=== PATIENT | male | born 1935 | race Caucasian/White ===

== ENCOUNTER 2018-01-31 09:53 | Outpatient (CLI) | payer OTHER ==
--- NOTE | 2018-02-04 15:32 | RAD ---
MODIFIED BARIUM SWALLOW: 02/04/18 HISTORY: Swallowing dysfunction. Difficulty swallowing and feeding dysfunction. The exam reviewed remotely. FINDINGS/IMPRESSION: There appears to be moderate swallowing dysfunction. Premature spillage and pooling is noted. Evidenc e of laryngeal penetration and aspiration. Pathologist describes this is silent aspiration. See speech pathologist recommendation. POS: [facility]
== END 2018-01-31 09:54 | disposition home or self-care (01) ==
LOC: EDSTATUS 10:00
PROVIDERS: ATTEND Family Medicine
DX: R13.10 Dysphagia, unspecified (principal); R63.3 Feeding difficulties
CPT/HCPCS: 74230; G8996-GN-CK; G8997-GN-CJ; G8998-GN-CK

== ENCOUNTER 2022-11-07 05:08 | Observation (INO) | payer MEDICARE ==
[2022-11-07 05:37] LABS: #Eosinphils 0.3 thou/uL (0.0-0.7); #Monocytes 1.4 thou/uL (0.11-0.59); #Neutrophils 6.1 thou/uL (1.40-6.50); %Basophils 0.3 % (0.0-1.0); %Eosinophils 2.3 % (0.0-10.0); %Lymphocytes 27.2 % (21.0-51.0); %Monocytes 12.7 % (0.0-10.0); %Neutrophils 57.2 % (42.0-75.0); Hemoglobin 12.7 g/dL (14.0-18.0); Mean Corpuscular HGB CONC 32.2 g/dL (32.0-36.0); Mean Corpuscular Hemoglobin 31.8 pg (27.0-31.0); Mean Platelet Volume 10.3 fL (7.4-10.4); Platelet Count 228 10x3/uL (130-400); RBC Distribution Width 13.2 % (11.5-14.5); Red Blood Cell (RBC) Count 3.99 mill/uL (4.70-6.10); White Blood Cell (WBC) Count 10.6 10x3/uL (4.8-10.8)
[2022-11-07 06:26] LABS: CKMB 3.7 ng/mL (0-6.6)
[2022-11-07 07:29] LABS: ALT (SGPT) 12 U/L (8-55); AST (SGOT) 15 U/L (5-34); Albumin 3.5 g/dL (3.4-4.8); Alkaline Phosphatase 83 U/L (40-110); Anion Gap 17 mmol/L (10-20); BUN (Urea Nitrogen) 27 mg/dL (8.4-25.7); Bilirubin, Total 0.4 mg/dL (0.2-1.2); Calc. Creatinine Clearance 0 mL/min (70-130); Carbon Dioxide 22 mmol/L (23-31); Chloride 105 mmol/L (98-107); Estimated GFR 68; Globulin 3.2 g/dL (2.4-3.5); Glucose 99 mg/dL (83-110); Potassium 4.7 mmol/L (3.5-5.1); Protein, Total 6.7 g/dL (5.8-8.1); Sodium 139 mmol/L (136-145)
[2022-11-07] MEDS ORDERED: Nitroglycerin 0.4 MG TAB (25 Tab Bottle) SL PRN (07:57)
[2022-11-07] MEDS ORDERED: Aspirin Chewable 81 MG TAB PO SCH (09:00)
[2022-11-07 09:32] LABS: Troponin I 0.027 ng/mL (< 0.028)
[2022-11-07] MEDS ORDERED: Acetaminophen 650 MG Suppository PR PRN (09:38)
[2022-11-07] MEDS ORDERED: Bisacodyl 5 MG TAB PO PRN (09:38)
[2022-11-07] MEDS ORDERED: Acetaminophen 325 MG TAB PO PRN (09:38)
[2022-11-07] MEDS ORDERED: Senokot S 8.6-50 MG TAB PO PRN (09:38)
[2022-11-07] MEDS ORDERED: Ipratropium/Albuterol 3 ML NEB NEB PRN (09:52)
[2022-11-07 10:39] LABS: Magnesium 2.1 mg/dL (1.6-2.6); Phosphorus 3.9 mg/dL (2.3-4.7)
[2022-11-07] MEDS ORDERED: Hydrocortisone 10 mg Tablet PO SCH (11:00)
[2022-11-07] MEDS ORDERED: Polyethylene Glycol 3350 17 GM Packet PO SCH (11:00)
[2022-11-07] MEDS ORDERED: predniSONE 20 MG TAB PO SCH (11:00)
[2022-11-07] MEDS ORDERED: predniSONE 20 MG TAB ONE (11:28)
[2022-11-07 12:44] LABS: SARS-CoV-2 NAA Rapid Test Not Detected (NotDetected)
[2022-11-07 12:59] LABS: Troponin I 0.028 ng/mL (< 0.028)
[2022-11-07 13:35] LABS: Strep pneumo Urine Ag NEGATIVE (NEGATIVE)
[2022-11-07 16:04] VITALS: BMI 31.3
[2022-11-07] MEDS: Mometasone/Formoterol 200/5 60 PUFF INH SCH (18:47)
[2022-11-07] MEDS: risperiDONE 1 MG TAB PO SCH (20:34)
[2022-11-07] MEDS ORDERED: Atorvastatin Calcium 20 MG TAB PO SCH (21:00)
[2022-11-07] MEDS ORDERED: Nortriptyline HCl 25 MG CAP PO SCH (21:00)
[2022-11-08 06:09] LABS: #Monocytes 0.9 thou/uL (0.11-0.59); #Neutrophils 6.3 thou/uL (1.40-6.50); %Basophils 0.1 % (0.0-1.0); %Eosinophils 0.2 % (0.0-10.0); %Lymphocytes 20.5 % (21.0-51.0); %Monocytes 10.2 % (0.0-10.0); %Neutrophils 68.8 % (42.0-75.0); Hemoglobin 12.3 g/dL (14.0-18.0); Mean Corpuscular HGB CONC 33.1 g/dL (32.0-36.0); Mean Corpuscular Hemoglobin 31.6 pg (27.0-31.0); Mean Corpuscular Volume 95.6 fl (78.0-98.0); Mean Platelet Volume 10.7 fL (7.4-10.4); Platelet Count 234 10x3/uL (130-400); Red Blood Cell (RBC) Count 3.89 mill/uL (4.70-6.10); White Blood Cell (WBC) Count 9.2 10x3/uL (4.8-10.8)
[2022-11-08 06:35] LABS: Anion Gap 14 mmol/L (10-20); BUN (Urea Nitrogen) 22 mg/dL (8.4-25.7); Calc. Creatinine Clearance 83 mL/min (70-130); Carbon Dioxide 22 mmol/L (23-31); Cardiac Risk 2.6 (Less than 4.5); Chloride 104 mmol/L (98-107); Cholesterol 119 mg/dl (< 200 Desired); Estimated GFR 85; Glucose 97 mg/dL (83-110); HDL Cholesterol 45 mg/dL (>60 Neg Risk); LDL Cholesterol, Calculated 63 mg/dL; Potassium 4.2 mmol/L (3.5-5.1); Sodium 136 mmol/L (136-145); Triglycerides 53 mg/dL (Less than 150)
[2022-11-08] MEDS: Mometasone/Formoterol 200/5 60 PUFF INH SCH ×2 (07:45→18:31)
[2022-11-08] MEDS ORDERED: predniSONE 20 MG TAB PO SCH (08:00)
[2022-11-08] MEDS: risperiDONE 1 MG TAB PO SCH (08:06)
[2022-11-08] MEDS ORDERED: Polyethylene Glycol 3350 17 GM Packet PO SCH (09:00)
[2022-11-08] MEDS ORDERED: Hydrocortisone 10 mg Tablet PO SCH (09:00)
[2022-11-08] MEDS ORDERED: Pramipexole Di-HCl 1 MG TAB PO SCH (09:00)
[2022-11-08] MEDS ORDERED: Aspirin 81 mg Enteric Coated Tablet PO SCH (09:00)
[2022-11-08] MEDS ORDERED: Nortriptyline HCl 25 MG CAP PO SCH (09:00)
[2022-11-08] MEDS ORDERED: Metoprolol Tartrate 25 MG TAB PO SCH ×2 (10:00→21:00)
[2022-11-08] MEDS ORDERED: Doxycycline 100 MG in Sodium Chloride 0.9% 100 ML IVPB SCH (10:00)
[2022-11-08] MEDS ORDERED: Losartan 25 MG TAB PO SCH (16:00)
[2022-11-08 16:16] VITALS: BP 119/60; TEMP 98.7
[2022-11-09] MEDS ORDERED: Losartan 25 MG TAB PO SCH (09:00)
== END 2022-11-08 19:15 | disposition home or self-care (01) ==
LOC: ERS 05:08 → ERHOLD 07:48 → 2SW 15:34
PROVIDERS: ADMIT Family Medicine; ATTEND Family Medicine
DX: R07.89 Other chest pain (principal); J20.8 Acute bronchitis due to other specified organisms; B97.89 Other viral agents as the cause of diseases classified elsewhere; J44.1 Chronic obstructive pulmonary disease with (acute) exacerbation; I10 Essential (primary) hypertension; I48.91 Unspecified atrial fibrillation; Z95.0 Presence of cardiac pacemaker; Z87.891 Personal history of nicotine dependence; Z79.82 Long term (current) use of aspirin; Z79.02 Long term (current) use of antithrombotics/antiplatelets; Z79.899 Other long term (current) drug therapy; Z88.8 Allergy status to other drugs, medicaments and biological substances
CPT/HCPCS: 71045; 80048; 80053; 80061; 82553; 83735 ×2; 83880; 84100; 84443; 84484 ×2; 85025 ×2; 87040; 87070; 87205; 87449; 87633; 93005; 93306; 94640 ×2; 94760 ×2; 97116; 97530; 99285; U0002; 36415; 96372; 96374; G0378; J1650; J3490; J7512

== ENCOUNTER 2022-12-29 17:50 | Inpatient (IN) | payer MEDICARE ==
[2022-12-29] MEDS ORDERED: Ipratropium/Albuterol 3 ML NEB NEB PRN (20:36)
[2022-12-29] MEDS ORDERED: Ondansetron PF 4 MG/2 ML Vial IVP PRN (20:36)
[2022-12-29] MEDS ORDERED: hydrALAZINE 20 MG/ML VIAL SLOW IVP PRN (20:36)
[2022-12-29 21:16] LABS: #Monocytes 1.2 thou/uL (0.11-0.59); #Neutrophils 11.7 thou/uL (1.40-6.50); %Basophils 0.1 % (0.0-1.0); %Eosinophils 0.3 % (0.0-10.0); %Lymphocytes 8.5 % (21.0-51.0); %Monocytes 8.7 % (0.0-10.0); %Neutrophils 81.9 % (42.0-75.0); Hematocrit 39.2 % (42.0-52.0); Hemoglobin 13.1 g/dL (14.0-18.0); Mean Corpuscular HGB CONC 33.4 g/dL (32.0-36.0); Mean Corpuscular Hemoglobin 31.5 pg (27.0-31.0); Mean Corpuscular Volume 94.2 fl (78.0-98.0); Mean Platelet Volume 10.7 fL (7.4-10.4); Platelet Count 191 10x3/uL (130-400); Red Blood Cell (RBC) Count 4.16 mill/uL (4.70-6.10); White Blood Cell (WBC) Count 14.2 10x3/uL (4.8-10.8)
[2022-12-29] MEDS: Sodium Chloride 0.9% 1,000 ML IV SCH (21:30)
[2022-12-29] MEDS: Senokot S 8.6-50 MG TAB PO SCH (21:35)
[2022-12-29 21:39] LABS: Anion Gap 15 mmol/L (10-20); BUN (Urea Nitrogen) 31 mg/dL (8.4-25.7); Calc. Creatinine Clearance 0 mL/min (70-130); Calcium 8.8 mg/dL (7.8-10.44); Carbon Dioxide 22 mmol/L (23-31); Chloride 101 mmol/L (98-107); Estimated GFR 51; Glucose 120 mg/dL (83-110); Magnesium 1.8 mg/dL (1.6-2.6); Phosphorus 2.8 mg/dL (2.3-4.7); Potassium 3.8 mmol/L (3.5-5.1); Sodium 134 mmol/L (136-145)
[2022-12-29] MEDS: Morphine 2 MG/ML VIAL SLOW IVP PRN (21:41)
[2022-12-29] MEDS: Famotidine/PF 20 mg/2ml Vial SLOW IVP SCH (21:41)
[2022-12-29 22:17] VITALS: BMI 28.3
[2022-12-29] MEDS: Acetaminophen 500 MG TAB PO SCH (23:48)
[2022-12-29] MEDS: Cyclobenzaprine 10 MG TAB PO PRN (23:48)
[2022-12-30 00:37] LABS: Bacteria/HPF None Seen HPF (None Seen); Bilirubin Negative (Negative); Blood, Urine Negative (Negative); CAUTI Indications for Culture Acute Hematuria; Clarity Clear (Clear); Glucose, Urine (Dipstick) Normal (Negative); Ketone, Urine Negative (Negative); Leukocyte Negative Leu/uL (Negative); Mucous/LPF 2+ LPF (<2+); Nitrite Negative (Negative); Protein, Urine (Dipstick) Negative (Neg-Trace); RBC/HPF 0-3 HPF (0-3); Specific Gravity, Urine 1.021 (1.002-1.036); Squamous Epithelial None Seen HPF (0-3); Urobilinogen Normal mg/dL (Less than 2); WBC/HPF 0-3 HPF (0-3); pH, Urine 5.5 (5.0-9.0)
[2022-12-30 00:38] LABS: Urine Culture Reflex No No
[2022-12-30] MEDS: Morphine 2 MG/ML VIAL SLOW IVP PRN ×6 (03:55→21:43)
[2022-12-30] MEDS: Sodium Chloride 0.9% 1,000 ML IV SCH (05:35)
[2022-12-30] MEDS: Acetaminophen 500 MG TAB PO SCH ×3 (06:14→17:06)
[2022-12-30 06:24] LABS: #Eosinphils 0.3 thou/uL (0.0-0.7); #Monocytes 1.2 thou/uL (0.11-0.59); %Basophils 0.1 % (0.0-1.0); %Eosinophils 2.2 % (0.0-10.0); %Lymphocytes 15.8 % (21.0-51.0); %Monocytes 8.7 % (0.0-10.0); %Neutrophils 72.8 % (42.0-75.0); Hematocrit 39.6 % (42.0-52.0); Hemoglobin 12.7 g/dL (14.0-18.0); Mean Corpuscular HGB CONC 32.1 g/dL (32.0-36.0); Mean Corpuscular Hemoglobin 31.3 pg (27.0-31.0); Mean Platelet Volume 11.3 fL (7.4-10.4); Platelet Count 169 10x3/uL (130-400); RBC Distribution Width 13.2 % (11.5-14.5); Red Blood Cell (RBC) Count 4.06 mill/uL (4.70-6.10); White Blood Cell (WBC) Count 13.8 10x3/uL (4.8-10.8)
[2022-12-30 06:35] LABS: INR-International Normal Ratio 1.6; PTT 30.6 sec (22.9-36.1); Prothrombin Time 19.6 sec (12.0-14.7)
[2022-12-30 06:47] LABS: Anion Gap 12 mmol/L (10-20); BUN (Urea Nitrogen) 29 mg/dL (8.4-25.7); Calc. Creatinine Clearance 54 mL/min (70-130); Calcium 8.7 mg/dL (7.8-10.44); Carbon Dioxide 21 mmol/L (23-31); Chloride 105 mmol/L (98-107); Estimated GFR 62; Glucose 93 mg/dL (83-110); Potassium 3.9 mmol/L (3.5-5.1); Sodium 134 mmol/L (136-145)
[2022-12-30 06:51] LABS: Mean Corpuscular Volume 97.5 fl (78.0-98.0)
[2022-12-30] MEDS: Polyethylene Glycol 3350 17 GM Packet PO SCH ×2 (10:03→10:30)
[2022-12-30] MEDS: Senokot S 8.6-50 MG TAB PO SCH ×3 (10:03→21:53)
[2022-12-30] MEDS: risperiDONE 1 MG TAB PO SCH ×3 (10:03→21:52)
[2022-12-30] MEDS ORDERED: Furosemide 40 MG/4 ML VIAL SLOW IVP SCH (12:30)
[2022-12-30 12:41] LABS: Bacteria/HPF None Seen HPF (None Seen); Bilirubin Negative (Negative); Blood, Urine Negative (Negative); CAUTI Indications for Culture Acute Hematuria; Clarity Clear (Clear); Glucose, Urine (Dipstick) Normal (Negative); Ketone, Urine Negative (Negative); Leukocyte Negative Leu/uL (Negative); Nitrite Negative (Negative); Protein, Urine (Dipstick) 20 mg/dL (Neg-Trace); Specific Gravity, Urine 1.025 (1.002-1.036); Squamous Epithelial None Seen HPF (0-3); Urobilinogen Normal mg/dL (Less than 2); WBC/HPF 0-3 HPF (0-3)
[2022-12-30 12:43] LABS: Urine Culture Reflex No No
[2022-12-30] MEDS: Ipratropium/Albuterol 3 ML NEB NEB SCH ×3 (13:02→23:50)
[2022-12-30] MEDS ORDERED: QUEtiapine 25 MG TAB PO SCH (17:00)
[2022-12-30] MEDS ORDERED: Furosemide 20 MG/2 ML VIAL SLOW IVP SCH (18:45)
[2022-12-30 19:13] LABS: #Eosinphils 0.2 thou/uL (0.0-0.7); #Monocytes 0.8 thou/uL (0.11-0.59); #Neutrophils 10.2 thou/uL (1.40-6.50); %Basophils 0.2 % (0.0-1.0); %Eosinophils 1.3 % (0.0-10.0); %Lymphocytes 7.2 % (21.0-51.0); %Monocytes 6.2 % (0.0-10.0); %Neutrophils 84.7 % (42.0-75.0); Hemoglobin 13.1 g/dL (14.0-18.0); Mean Corpuscular HGB CONC 32.8 g/dL (32.0-36.0); Mean Corpuscular Hemoglobin 31.8 pg (27.0-31.0); Mean Corpuscular Volume 97.1 fl (78.0-98.0); Mean Platelet Volume 10.9 fL (7.4-10.4); Platelet Count 177 10x3/uL (130-400); RBC Distribution Width 13.2 % (11.5-14.5); Red Blood Cell (RBC) Count 4.12 mill/uL (4.70-6.10)
[2022-12-30 19:14] LABS: Actual Bicarbonate (HCO3a) 21.9 mEq/L (22-28); Base Excess (BEa) -0.8 mEq/L (-2.0 to +3.0); CO2 Tension 30.6 mmHg (35.0-45.0); Calcium, Ionized (arterial) 1.13 mmol/L (1.12-1.30); Carboxyhemoglobin (COHb) 0.9 gm% (0.0-3.0); Hematocrit-ABG 40 % (42.0-52.0); Hemoglobin (Hb) 13.5 g/dL (14.0-18.0); Potassium - ABG Lab 3.88 mmol/L (3.70-5.30); pH, Arterial 7.472 (7.35-7.45)
[2022-12-30 19:16] LABS: Puncture Site RRA
[2022-12-30 19:33] LABS: Anion Gap 16 mmol/L (10-20); BUN (Urea Nitrogen) 29 mg/dL (8.4-25.7); Calc. Creatinine Clearance 39 mL/min (70-130); Calcium 8.8 mg/dL (7.8-10.44); Carbon Dioxide 20 mmol/L (23-31); Chloride 103 mmol/L (98-107); Estimated GFR 42; Glucose 110 mg/dL (83-110); Magnesium 1.9 mg/dL (1.6-2.6); Phosphorus 2.3 mg/dL (2.3-4.7); Sodium 135 mmol/L (136-145)
[2022-12-30] MEDS: Famotidine/PF 20 mg/2ml Vial SLOW IVP SCH (21:42)
[2022-12-30] MEDS: Atorvastatin Calcium 20 MG TAB PO SCH ×2 (21:42→21:54)
[2022-12-30] MEDS: Tamsulosin HCl 0.4 MG CAP PO SCH ×2 (21:42→21:54)
[2022-12-31] MEDS: Acetaminophen 500 MG TAB PO SCH ×4 (00:05→23:11)
[2022-12-31] MEDS ORDERED: Sodium Chloride 0.9% 1,000 ML IV SCH ×2 (01:00→08:00)
[2022-12-31 04:03] LABS: #Eosinphils 0.1 thou/uL (0.0-0.7); #Monocytes 0.7 thou/uL (0.11-0.59); #Neutrophils 8.6 thou/uL (1.40-6.50); %Basophils 0.2 % (0.0-1.0); %Eosinophils 1.1 % (0.0-10.0); %Lymphocytes 11.8 % (21.0-51.0); %Monocytes 6.8 % (0.0-10.0); %Neutrophils 79.8 % (42.0-75.0); Hematocrit 38.5 % (42.0-52.0); Hemoglobin 12.5 g/dL (14.0-18.0); Mean Corpuscular HGB CONC 32.5 g/dL (32.0-36.0); Mean Corpuscular Hemoglobin 31.3 pg (27.0-31.0); Mean Corpuscular Volume 96.5 fl (78.0-98.0); Mean Platelet Volume 11.2 fL (7.4-10.4); Platelet Count 152 10x3/uL (130-400); RBC Distribution Width 13.2 % (11.5-14.5); Red Blood Cell (RBC) Count 3.99 mill/uL (4.70-6.10); White Blood Cell (WBC) Count 10.8 10x3/uL (4.8-10.8)
[2022-12-31 04:35] LABS: Anion Gap 14 mmol/L (10-20); BUN (Urea Nitrogen) 30 mg/dL (8.4-25.7); Calc. Creatinine Clearance 45 mL/min (70-130); Calcium 8.5 mg/dL (7.8-10.44); Carbon Dioxide 23 mmol/L (23-31); Chloride 102 mmol/L (98-107); Estimated GFR 49; Glucose 106 mg/dL (83-110); Phosphorus 3.9 mg/dL (2.3-4.7); Potassium 3.9 mmol/L (3.5-5.1); Sodium 135 mmol/L (136-145)
[2022-12-31] MEDS ORDERED: CEFAZOLIN 2 GM in Sodium Chloride 0.9% 100 ML IVPB SCH (06:00)
[2022-12-31] MEDS: Ipratropium/Albuterol 3 ML NEB NEB SCH ×4 (06:30→19:38)
[2022-12-31] MEDS ORDERED: fentaNYL PF 100 MCG/2 ML SYRINGE ONE ×2 (07:28→11:33)
[2022-12-31] MEDS ORDERED: Dexmedetomidine 200 MCG/2 ML VIAL ONE (07:29)
[2022-12-31] MEDS ORDERED: QUEtiapine 25 MG TAB PO SCH (09:00)
[2022-12-31] MEDS ORDERED: Propofol 1,000 MG/100 ML VIAL IV ONE (11:33)
[2022-12-31] MEDS ORDERED: Ketamine 50 MG/ML (10ML VIAL) ONE (11:33)
[2022-12-31] MEDS ORDERED: PROPOFOL 200 MG/20 ML VIAL ONE (12:55)
[2022-12-31] MEDS ORDERED: PHENYLEPHRINE-NS 100 MCG/ML 10 ML SYRINGE ONE (12:55)
[2022-12-31] MEDS ORDERED: Lidocaine 1% PF 5 ML VIAL ONE (12:55)
[2022-12-31] MEDS ORDERED: ePHEDrine Sulfate 50 MG/10 ML VIAL ONE (12:55)
[2022-12-31] MEDS ORDERED: fentaNYL 50 mcg/mL 1 mL Vial ONE (14:46)
[2022-12-31] MEDS ORDERED: Ondansetron HCl/PF 4 MG/2 ML Vial IVP PRN (15:15)
[2022-12-31] MEDS ORDERED: Promethazine HCl 25 MG/ML VIAL IM/IV PRN (15:15)
[2022-12-31] MEDS: Senokot S 8.6-50 MG TAB PO SCH ×2 (16:25→23:10)
[2022-12-31] MEDS: Polyethylene Glycol 3350 17 GM Packet PO SCH (16:25)
[2022-12-31] MEDS: risperiDONE 1 MG TAB PO SCH ×2 (16:25→23:11)
[2022-12-31] MEDS: Atorvastatin Calcium 20 MG TAB PO SCH (23:11)
[2022-12-31] MEDS: Tamsulosin HCl 0.4 MG CAP PO SCH (23:11)
[2022-12-31] MEDS: Cyclobenzaprine 10 MG TAB PO PRN (23:11)
[2022-12-31] MEDS: Famotidine/PF 20 mg/2ml Vial SLOW IVP SCH (23:11)
[2022-12-31] MEDS: Morphine 2 MG/ML VIAL SLOW IVP PRN (23:12)
[2022-12-31] MEDS: CEFAZOLIN 2 GM in Sodium Chloride 0.9% 100 ML IVPB SCH (23:13)
[2023-01-01] MEDS: Ipratropium/Albuterol 3 ML NEB NEB SCH ×4 (00:27→19:19)
[2023-01-01] MEDS: CEFAZOLIN 2 GM in Sodium Chloride 0.9% 100 ML IVPB SCH (05:27)
[2023-01-01] MEDS: Acetaminophen 500 MG TAB PO SCH (05:28)
[2023-01-01] MEDS: Morphine 2 MG/ML VIAL SLOW IVP PRN (05:28)
[2023-01-01 06:42] LABS: #Monocytes 0.8 thou/uL (0.11-0.59); #Neutrophils 6.2 thou/uL (1.40-6.50); %Basophils 0.1 % (0.0-1.0); %Eosinophils 0.4 % (0.0-10.0); %Lymphocytes 11.1 % (21.0-51.0); %Monocytes 10.4 % (0.0-10.0); %Neutrophils 77.5 % (42.0-75.0); Hematocrit 35.6 % (42.0-52.0); Hemoglobin 11.5 g/dL (14.0-18.0); Mean Corpuscular HGB CONC 32.3 g/dL (32.0-36.0); Mean Corpuscular Hemoglobin 31.3 pg (27.0-31.0); Mean Platelet Volume 10.9 fL (7.4-10.4); Platelet Count 154 10x3/uL (130-400); RBC Distribution Width 13.2 % (11.5-14.5); Red Blood Cell (RBC) Count 3.67 mill/uL (4.70-6.10)
[2023-01-01 07:21] LABS: Anion Gap 13 mmol/L (10-20); BUN (Urea Nitrogen) 39 mg/dL (8.4-25.7); Calc. Creatinine Clearance 55 mL/min (70-130); Calcium 8.6 mg/dL (7.8-10.44); Carbon Dioxide 24 mmol/L (23-31); Chloride 106 mmol/L (98-107); Estimated GFR 62; Glucose 122 mg/dL (83-110); Magnesium 2.2 mg/dL (1.6-2.6); Phosphorus 2.1 mg/dL (2.3-4.7); Potassium 3.7 mmol/L (3.5-5.1); Sodium 139 mmol/L (136-145)
[2023-01-01] MEDS: Senokot S 8.6-50 MG TAB PO SCH ×2 (08:46→21:46)
[2023-01-01] MEDS: risperiDONE 1 MG TAB PO SCH ×2 (08:46→21:46)
[2023-01-01] MEDS: Polyethylene Glycol 3350 17 GM Packet PO SCH (08:46)
[2023-01-01] MEDS ORDERED: Cyclobenzaprine 10 MG TAB PO PRN (08:59)
[2023-01-01] MEDS ORDERED: Acetaminophen/Codeine 30-300mg Tablet PO PRN (08:59)
[2023-01-01] MEDS: Famotidine 20 MG TAB PO SCH ×2 (09:18→21:45)
[2023-01-01] MEDS: Acetaminophen/Codeine 30-300mg Tablet PO PRN ×2 (09:18→21:46)
[2023-01-01 11:29] LABS: O2 Tension (PaO2), arterial 59.1 mmHg (> 60.0)
[2023-01-01] MEDS: Rivaroxaban 10 MG TAB PO SCH (17:12)
[2023-01-01] MEDS: Atorvastatin Calcium 20 MG TAB PO SCH (21:45)
[2023-01-01] MEDS: Tamsulosin HCl 0.4 MG CAP PO SCH (21:46)
[2023-01-02] MEDS: Ipratropium/Albuterol 3 ML NEB NEB SCH ×5 (00:39→23:34)
[2023-01-02] MEDS ORDERED: QUEtiapine 25 MG TAB PO SCH (02:00)
[2023-01-02] MEDS: Acetaminophen/Codeine 30-300mg Tablet PO PRN (02:03)
[2023-01-02] MEDS: Polyethylene Glycol 3350 17 GM Packet PO SCH (11:03)
[2023-01-02] MEDS: Famotidine 20 MG TAB PO SCH ×2 (11:03→20:09)
[2023-01-02] MEDS: Senokot S 8.6-50 MG TAB PO SCH ×2 (11:09→20:09)
[2023-01-02] MEDS: risperiDONE 1 MG TAB PO SCH ×2 (11:09→20:09)
[2023-01-02] MEDS: Ziprasidone 20 MG VIAL IM SCH ×4 (11:09→20:26)
[2023-01-02 12:05] LABS: #Monocytes 0.8 thou/uL (0.11-0.59); %Basophils 0.2 % (0.0-1.0); %Eosinophils 0.6 % (0.0-10.0); %Lymphocytes 8.7 % (21.0-51.0); %Monocytes 12.4 % (0.0-10.0); %Neutrophils 77.9 % (42.0-75.0); Hematocrit 33.6 % (42.0-52.0); Hemoglobin 11.1 g/dL (14.0-18.0); Mean Corpuscular Hemoglobin 31.9 pg (27.0-31.0); Mean Corpuscular Volume 96.6 fl (78.0-98.0); Mean Platelet Volume 11.3 fL (7.4-10.4); Platelet Count 171 10x3/uL (130-400); RBC Distribution Width 13.4 % (11.5-14.5); Red Blood Cell (RBC) Count 3.48 mill/uL (4.70-6.10); White Blood Cell (WBC) Count 6.4 10x3/uL (4.8-10.8)
[2023-01-02 12:30] LABS: ALT (SGPT) 13 U/L (8-55); AST (SGOT) 50 U/L (5-34); Albumin 2.8 g/dL (3.4-4.8); Alkaline Phosphatase 75 U/L (40-110); Anion Gap 11 mmol/L (10-20); BUN (Urea Nitrogen) 44 mg/dL (8.4-25.7); Bilirubin, Total 0.6 mg/dL (0.2-1.2); Calc. Creatinine Clearance 60 mL/min (70-130); Calcium 8.9 mg/dL (7.8-10.44); Carbon Dioxide 25 mmol/L (23-31); Chloride 106 mmol/L (98-107); Estimated GFR 70; Globulin 3.2 g/dL (2.4-3.5); Glucose 119 mg/dL (83-110); Sodium 138 mmol/L (136-145)
[2023-01-02 13:27] LABS: Troponin I 0.163 ng/mL (< 0.028)
[2023-01-02] MEDS: Rivaroxaban 10 MG TAB PO SCH (16:57)
[2023-01-02] MEDS: Sodium Chloride 0.9% 1,000 ML IV SCH (18:35)
[2023-01-02 19:04] LABS: Troponin I 0.128 ng/mL (< 0.028)
[2023-01-02] MEDS ORDERED: Acetaminophen 650 MG Suppository PR PRN (19:20)
[2023-01-02] MEDS ORDERED: Piperacillin/Tazobactam 3.375 GM in Sodium Chloride 0.9% 100 ML IVPB SCH (19:30)
[2023-01-02] MEDS: Atorvastatin Calcium 20 MG TAB PO SCH (20:09)
[2023-01-02] MEDS: Tamsulosin HCl 0.4 MG CAP PO SCH (20:09)
[2023-01-02] MEDS ORDERED: Sterile Water 10 ML ONE (20:12)
[2023-01-02] MEDS: Piperacillin/Tazobactam 3.375 GM in Sodium Chloride 0.9% 100 ML IVPB SCH (23:24)
[2023-01-03 03:57] LABS: Hematocrit 31.9 % (42.0-52.0); Hemoglobin 10.3 g/dL (14.0-18.0); Mean Corpuscular HGB CONC 32.3 g/dL (32.0-36.0); Mean Corpuscular Hemoglobin 31.8 pg (27.0-31.0); Mean Corpuscular Volume 98.5 fl (78.0-98.0); Mean Platelet Volume 10.8 fL (7.4-10.4); Platelet Count 169 10x3/uL (130-400); RBC Distribution Width 13.5 % (11.5-14.5); Red Blood Cell (RBC) Count 3.24 mill/uL (4.70-6.10); White Blood Cell (WBC) Count 11.1 10x3/uL (4.8-10.8)
[2023-01-03 04:06] LABS: Delete Auto Diff?? YES; Manual Diff?? YES
[2023-01-03 04:22] LABS: ALT (SGPT) 10 U/L (8-55); AST (SGOT) 39 U/L (5-34); Albumin 2.5 g/dL (3.4-4.8); Alkaline Phosphatase 65 U/L (40-110); Anion Gap 11 mmol/L (10-20); BUN (Urea Nitrogen) 43 mg/dL (8.4-25.7); Bilirubin, Total 0.6 mg/dL (0.2-1.2); Calc. Creatinine Clearance 58 mL/min (70-130); Calcium 8.6 mg/dL (7.8-10.44); Carbon Dioxide 24 mmol/L (23-31); Chloride 108 mmol/L (98-107); Estimated GFR 67; Globulin 2.9 g/dL (2.4-3.5); Glucose 89 mg/dL (83-110); Potassium 4.1 mmol/L (3.5-5.1); Protein, Total 5.4 g/dL (5.8-8.1); Sodium 139 mmol/L (136-145)
[2023-01-03 04:32] LABS: Anisocytosis SLIGHT = 6-15 cells HPF (0-5); Band 1 % (5-11); Burr Cells MODERATE= 6-15 cells HPF (0-1); CellaVision Operator ID lab.sh2; Lymphocytes 9 % (21-51); Macrocytosis SLIGHT = 6-15 cells HPF (0-5); Monocytes 5 % (0-10); Neutrophil 85 % (42-75); Ovalocytes SLIGHT = 2-5 cells HPF (0-1); Platelet Adequacy Comment Platelets Normal; Poikilocytosis MODERATE=16-30 cells HPF (0-5); Polychromasia SLIGHT = 2-3 cells HPF (0-2); Smudge Cells 11.1 %; Total Cell Count 99
[2023-01-03] MEDS: Sodium Chloride 0.9% 1,000 ML IV SCH ×2 (04:55→21:55)
[2023-01-03] MEDS: Ipratropium/Albuterol 3 ML NEB NEB SCH ×4 (07:08→23:58)
[2023-01-03] MEDS: Piperacillin/Tazobactam 3.375 GM in Sodium Chloride 0.9% 100 ML IVPB SCH ×3 (08:12→23:29)
[2023-01-03] MEDS: Famotidine 20 MG TAB PO SCH ×2 (10:00→21:55)
[2023-01-03] MEDS: Pramipexole Di-HCl 1 MG TAB PO SCH (10:00)
[2023-01-03] MEDS: Polyethylene Glycol 3350 17 GM Packet PO SCH (10:00)
[2023-01-03] MEDS: risperiDONE 1 MG TAB PO SCH ×2 (10:01→21:55)
[2023-01-03] MEDS: Senokot S 8.6-50 MG TAB PO SCH ×2 (10:01→21:55)
[2023-01-03 14:36] VITALS: BP 109/53
[2023-01-03] MEDS: Atorvastatin Calcium 20 MG TAB PO SCH (21:55)
[2023-01-03] MEDS: Tamsulosin HCl 0.4 MG CAP PO SCH (21:55)
[2023-01-04] MEDS: Ipratropium/Albuterol 3 ML NEB NEB SCH (07:42)
[2023-01-04] MEDS ORDERED: Nortriptyline HCl 25 MG CAP PO SCH (09:00)
[2023-01-04 09:02] VITALS: TEMP 96.9
[2023-01-04] MEDS: Pramipexole Di-HCl 1 MG TAB PO SCH (09:07)
[2023-01-04] MEDS: risperiDONE 1 MG TAB PO SCH (09:07)
[2023-01-04] MEDS: Senokot S 8.6-50 MG TAB PO SCH (09:07)
[2023-01-04] MEDS: Piperacillin/Tazobactam 3.375 GM in Sodium Chloride 0.9% 100 ML IVPB SCH (09:08)
[2023-01-04] MEDS: Polyethylene Glycol 3350 17 GM Packet PO SCH (09:08)
[2023-01-04] MEDS: Famotidine 20 MG TAB PO SCH (09:08)
[2023-01-04] MEDS ORDERED: Rivaroxaban 10 MG TAB PO SCH (17:00)
[2023-01-05] MEDS ORDERED: Amoxicillin/Potassium Clav 875 MG TAB PO SCH (09:00)
== END 2023-01-04 10:24 | disposition swing bed (61) | DRG 521 ==
LOC: SURG B 20:06 → CCU 12-30 20:23 → SURG B 12-31 15:05 → IMCU/EMU 01-02 15:16
PROVIDERS: ADMIT Specialist; ATTEND Specialist
PROC: 4A033R1 Measurement of Arterial Saturation, Peripheral, Percutaneous Approach (ICD-10-PCS; 2022-12-30)
PROC: 0SRS0JA Replacement of Left Hip Joint, Femoral Surface with Synthetic Substitute, Uncemented, Open Approach (ICD-10-PCS; principal; 2022-12-31)
DX: S72.002A Fracture of unspecified part of neck of left femur, initial encounter for closed fracture (principal); I50.33 Acute on chronic diastolic (congestive) heart failure; J69.0 Pneumonitis due to inhalation of food and vomit; J96.21 Acute and chronic respiratory failure with hypoxia; S52.92XA Unspecified fracture of left forearm, initial encounter for closed fracture; N17.9 Acute kidney failure, unspecified; D62 Acute posthemorrhagic anemia; I13.0 Hypertensive heart and chronic kidney disease with heart failure and stage 1 through stage 4 chronic kidney disease, or unspecified chronic kidney disease; F05 Delirium due to known physiological condition; W18.30XA Fall on same level, unspecified, initial encounter; J44.9 Chronic obstructive pulmonary disease, unspecified; G20 Parkinson's disease; Z66 Do not resuscitate; F20.9 Schizophrenia, unspecified; R33.9 Retention of urine, unspecified; R13.12 Dysphagia, oropharyngeal phase; R45.1 Restlessness and agitation; E78.5 Hyperlipidemia, unspecified; K21.9 Gastro-esophageal reflux disease without esophagitis; I25.10 Atherosclerotic heart disease of native coronary artery without angina pectoris; N18.9 Chronic kidney disease, unspecified; G47.33 Obstructive sleep apnea (adult) (pediatric); Z95.0 Presence of cardiac pacemaker; Z88.8 Allergy status to other drugs, medicaments and biological substances; Z79.01 Long term (current) use of anticoagulants; Z79.899 Other long term (current) drug therapy; Y92.128 Other place in nursing home as the place of occurrence of the external cause
CPT/HCPCS: 36415; 36600; 71045; 71046; 72170; 74230; 80048; 80053; 81001; 82805; 83735; 83880; 84100; 84484; 85025; 85610; 85730; 86850; 86900; 86901; 87040; 87086; 93005; 93010; 93306; 94640; C1776; J1650; J1940; J2272; J2543; J2704; J3010; J3490; J7050; J7620; S0028